=== PATIENT | male | born 2000 | race African-American/Black ===

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

== ENCOUNTER 2019-08-03 14:56 | Emergency (ER) | payer SELFPAY ==
[~2019-08-03] VITALS: Ht 182.9 cm; Wt 77.0 kg
[~2019-08-03 14:56] MED LIST: BENZ100C PO; METH4TAB2 PO
[2019-08-03 15:00] VITALS: BP 117/81
[2019-08-03] MEDS ORDERED: IBUPROFEN 400 MG TABLET. PO ONE (15:30)
--- NOTE | 2019-08-03 16:00 | PHYS DOC ---
Past Medical History Past Medical History: No Pertinent History Past Surgical History: No Surgical History Smoking Status: Never Smoker Alcohol Use: None Drug Use: None General Adult EDM: Chief Complaint: SHOULDER INJURY HPI: HPI: Patient is a 19 year old male presenting to the ED with chief complaint of rig ht shoulder pain. Patient states that this occurred yesterday as he was playing basketball. Patient states that he states that his arm and someone ran into it. Patient complains of pain in his right shoulder. No other injuries noted. Patient states that today he was at work and lifting heavy equipment and is had her a lot. Patient also requests work note for today. Review of Systems: Review of Systems: Constitutional: Denies fever or chills. [] Eyes: Denies change in visual acuity. [] HENT: Denies nasal congestion or sore throat. [] Respiratory: Denies cough or shortness of breath. [] Cardiovascular: Denies chest pain or edema. [] : Denies dysuria. [] Musculoskeletal: Pain in the right shoulder Heart Score: Risk Factors: Risk Factors: DM, Current or recent (<one month) smoker, HTN, HLP, family history of CAD, obesity. Risk Scores: Score 0 - 3: 2.5% MACE over next 6 weeks - Discharge Home Score 4 - 6: 20.3% MACE over next 6 weeks - Admit for Clinical Observation Score 7 - 10: 72.7% MACE over next 6 weeks - Early Invasive Strategies Current Medications: Current Medications Medications (Trade) Dose Ordered Sig/Misti Start Time Stop Time Status Last Admin Dose Admin Ibuprofen (Motrin) 400 mg 1X ONCE 08/03/19 15:30 08/03/19 15:31 DC 08/03/19 15:46 400 MG Allergies: Allergies: Allergies Coded Allergies Type Severity Reaction Last Updated Verified No Known Drug Allergies 03/28/14 No Physical Exam: PE: Constitutional: Well developed, well nourished, no acute distress, non-toxic appearance. [] HENT: Normocephalic, atraumatic Eyes: EOMI Neck: Normal range of motion, Respiratory: No respiratory distress Extremities: Tenderness to the right shoulder, neurovascular intact Neurologic: Alert and oriented X 3 Current Patient Data: Vital Signs: Vital Signs Date Time Temp Pulse Resp B/P (MAP) Pulse Ox O2 Delivery O2 Flow Rate FiO2 6/27/20 15:00 98.4 77 18 117/81 (93) 100 Room Air 98.4 EKG: EKG: [] Radiology/Procedures: Radiology/Procedures: [] Impression: SHOULDER XRAY Normal alignment of the glenohumeral and acromioclavicular joint is preserved. There is no acute fracture or dislocation. No obvious soft tissue swelling or foreign body seen. Course & Med Decision Making: Course & Med Decision Making Pertinent Imaging studies reviewed. (See chart for details) Ordered x-ray of the right shoulder and Motrin oral tablet. Shoulder x-rays negative for acute fracture. We will refer patient to orthopedic surgery. We will give patient a work note for today. Discussed results and plan of care with patient. Patient is instructed to follow up with PCP in one to 2 days. Appropriate discharge instructions given to patient to return to the ED or to seek immediate medical evaluation. Patient is instructed to return to the ED if symptoms worsen or if any concerns. Dragon Disclaimer: Dragon Disclaimer: This electronic medical record was generated, in whole or in part, using a voice recognition dictation system. Departure Departure Impression: Primary Impression: Right shoulder strain Disposition: 01 HOME, SELF-CARE Condition: STABLE Referrals: REYNOLD RODAS II, MD Please call for appointment Patient Instructions: Shoulder Pain, Shoulder Sprain Additional Instructions: Discussed results and plan of care with patient. Patient is instructed to follow up with PCP in one to 2 days. Appropriate discharge instructions given to patient to return to the ED or to seek immediate medical evaluation. Patient is instructed to return to the ED if symptoms worsen or if any concerns. Justicifation of Admission Dx: Justifications for Admission: Justification of Admission Dx: PRAFUL Sahu DO Aug 03, 2019 16:00
--- NOTE | 2019-08-03 16:07 | RAD ---
Exam performed: Right shoulder 3 views. Indication: Right shoulder pain, status post injury Date of Service: 08/03/2019. Comparison: None available Findings: AP view of the right shoulder in internal and external rotation as well as Y views are obtained Normal alignment of the glenohumeral and acromioclavicular joint is preserved. There is no acute fracture or dislocation. No obvious soft tissue swelling or foreign body seen. Impression: 1. No definite abnormality seen in the right shoulder. Electronically signed by: Luisana Jensen MD (08/03/2019 4:04 PM) [facility]
== END 2019-08-03 17:00 | disposition home or self-care (01) ==
LOC: ER 14:56
DX: S46.911A Strain of unspecified muscle, fascia and tendon at shoulder and upper arm level, right arm, initial encounter (principal); X50.0XXA Overexertion from strenuous movement or load, initial encounter; Y93.89 Activity, other specified; Y92.69 Other specified industrial and construction area as the place of occurrence of the external cause; Y99.0 Civilian activity done for income or pay
CPT/HCPCS: 73030; 99283